=== PATIENT | female | born 1950 | race Caucasian/White ===

== ENCOUNTER 2024-09-30 15:26 | Emergency (ER) | payer MEDICARE, SELFPAY ==
[2024-09-30 15:44] VITALS: BP 131/85; PULSE 76; RESP 14; TEMP 36.8; O2SAT 96; BMI 18.6
--- NOTE | 2024-09-30 15:58 | XR_ITS ---
Examination: Foot, right 3 views Technique: AP, oblique, lateral views foot, 3 views Date and time of exam: September 30, 2024 1618 hrs. Indications: Onset right foot pain today Findings: Significant osteopenia Mild bunion deformity Moderate osteoarthritis first metatarsophalangeal joint No fracture No cortical bone destruction Impression: Mild bunion deformity Moderate osteoarthritis first metatarsophalangeal joint
--- NOTE | 2024-09-30 17:29 | PD.EDLOWEX ---
Lower Extremity Injury RME/HPI General Chief Complaint: Extremity Injury, Lower Stated Complaint: R FOOT PAIN Time Seen by Provider: 09/30/24 15:37 Arrival date/time: 09/30/24 15:26 74-year-old female presents emergency department complains of right foot pain x 1 year patient reports no fever nausea vomiting patient concerned she may have a foreign body in her right foot patient ports callus to the lateral aspect of the right foot Limitations: no limitations Related Data Home Medications ?Medication ?Instructions ?Recorded ?Confirmed No Known Home Medications 05/28/19 05/28/19 Allergies Allergy/AdvReac Type Severity Reaction Status Date / Time No Known Allergies Allergy Verified 05/27/19 23:11 Review of Systems Review of Systems Systems Reviewed: All systems reviewed, normal except as documented Constitutional Constitutional: Reports system reviewed and no additional complaints, except as documented, Denies fever(s) and Denies headache(s) Eyes Eyes: Reports system reviewed and no additional complaints, except as documented and Denies blurry vision ENT Ears, Nose, Mouth, and Throat: Reports system reviewed and no additional complaints, except as documented, Denies headache(s), Denies nasal congestion and Denies nasal discharge Cardiovascular Cardiovascular: Reports system reviewed and no additional complaints, except as documented, Denies chest pain and Denies dyspnea Respiratory Respiratory: Reports system reviewed and no additional complaints, except as documented, Denies chest congestion, Denies cough and Denies dyspnea Gastrointestinal Gastrointestinal: Reports system reviewed and no additional complaints, except as documented and Denies abdominal pain Musculoskeletal Musculoskeletal: Reports system reviewed and no additional complaints, except as documented, Reports arthralgias, Denies joint swelling, Denies stiffness and Denies tingling Integumentary/Breasts Skin/Breast: Reports system reviewed and no additional complaints, except as documented and Denies rash Neurologic Neurologic: Reports system reviewed and no additional complaints, except as documented, Reports as per HPI, Denies headache(s) and Denies tingling Past Medical History Past Medical History NEUROLOGIC: Negative Neurological Disorders CARDIAC: Negative Cardiac Disorders or Congestive Heart Failure RESPIRATORY: Negative Chronic Obstructive Pulmonary Disease (COPD) or Asthma GASTROINTESTINAL: Negative Gastrointestinal Disorders GENITOURINARY: Negative Genitourinary Disorders or Renal Disease REPRODUCTIVE: Negative Pelvic Inflammatory Disease MUSCULOSKELETAL: Negative Musculoskeletal Disorders ENDOCRINE: Negative Endocrine Disorders, Diabetes Mellitus Type 1 or Diabetes Mellitus Type 2 HEMATOLOGIC: Negative Blood Disorders Surgical History SURGICAL: Positive Tonsillectomy; Negative Cardiac Surgery, Ear Surgery or Abdominal Surgery Social History SMOKING STATUS: Never smoker ED Exam General Limitations: Present no limitations General appearance: Present alert and in no apparent distress Head Head exam: Present atraumatic Eye Eye exam: Present normal appearance, PERRL and EOMI ENT ENT exam: Present normal exam, normal oropharynx and mucous membranes moist Neck Neck exam: Present normal inspection, full ROM and trachea midline Chest Chest inspection: Present normal inspection and symmetric chest wall rise Respiratory Respiratory exam: Present normal lung sounds bilaterally Cardiovascular Cardiovascular exam: Present regular rate, normal rhythm and normal heart sounds Abdominal Exam Abdominal exam: Present soft and normal bowel sounds Extremities Exam Extremities exam: Present full ROM, tenderness and normal capillary refill; Absent joint swelling or calf tenderness Back Exam Back exam: Present normal inspection and full ROM Neurological Exam Neurological exam: Present alert, oriented X3 and CN II-XII intact Psychiatric Psychiatric exam: Present normal affect and normal mood Skin Skin exam: Present warm, dry, intact and normal color Course Quality Measures none Orders Category Date Time Status XR foot comp RT min 3V Stat Exams 09/30/24 15:58 Completed Vital Signs Vital signs: Vital Signs Temperature 98.3 F 09/30/24 15:44 Pulse Rate 76 09/30/24 15:44 Respiratory Rate 14 09/30/24 15:44 Blood Pressure 131/85 H 09/30/24 15:44 Pulse Oximetry (%) 96 09/30/24 15:44 Oxygen Delivery Method Room Air 09/30/24 15:44 O2 saturation 96% room air within normal limits Extremity Injury, Lower MDM Narrative MDM Narrative:: 74-year-old female presents emergency department complains of right foot pain x 1 year patient reports no fever nausea vomiting patient concerned she may have a foreign body in her right foot patient reports callus to the lateral aspect of the right foot On exam patient appears to have callus right foot no foreign body palpated or seen no erythema no swelling X-ray of right foot obtained no acute radiopaque foreign body noted Explained to the patient she is to follow-up with podiatry for further evaluation and treatment Patient data External records reviewed:: [facility] [place] previous records Clinical information provided by:: patient Social determinants that could affect healthcare access:: none Patient has the following chronic illnesses:: See history How is presenting disease/condition affected by chronic disease/condition?: uneffected by Evaluation data The following diagnostics were reviewed and interpreted by me:: radiology exam(s) Lab and/or radiology exams considered but not ordered:: Radiology obtain Interpretation Summary: Reviewed by me Medications / Prescriptions Medications or Prescriptions considered but not ordered:: Given no meds Medication administrations:: Given no meds Consultations Consultation(s) initiated? (list below): No Diagnosis Extremity Injury, Lower Differential Diagnosis: other (Foot sprain, foot fracture, foreign body right foot) Most likely diagnosis given after review of the tests above:: Foot pain Admission Indicated Admission indicated?: not indicated Admission Request Was there a request for admission?: No Disposition Plan Disposition Plan: Discharge Discharge Attestation Discharge Attestation: The patient and all family members were given an opportunity to ask questions and understood the discharge instructions. Discharge instructions specifically effects, indications for sooner follow up or return to the emergency department, and the expected course of current diagnosis. Patient condition: Stable Discharge Plan Plan Patient Disposition: HOME (Self Care) Disposition Comment: Stable Prescriptions/Referrals Prescriptions/Med Rec: No Action No Known Home Medications Referrals: Davidson Ferguson MD [Primary Care Provider] - 10/02/24 Problem List Clinical Impression: Bunion of right foot Patient/Caregiver Discharge Instructions Education Materials: ED Bunion Additional Instructions: Please follow-up with your primary care doctor in order get a referral to podiatry Print Language: Armenian Stand Alone Forms: Usha Award Info., Patient Portal Info Letter PA/TYRONE Supervising Physician AGUSTINA/TYRONE Supervising Physician: Dr Jenkins
== END 2024-09-30 17:46 | disposition home or self-care (01) ==
PROVIDERS: Emergency Provider Emergency Medicine; PCP Family Medicine
DX: M21.611 Bunion of right foot (principal)
CPT/HCPCS: 73630; 99283

== ENCOUNTER 2024-12-01 21:32 | Emergency (ER) | payer MEDICARE, SELFPAY ==
[2024-12-01 22:07] VITALS: BP 177/77; PULSE 65; RESP 16; TEMP 36.6; O2SAT 98
--- NOTE | 2024-12-01 22:25 | XR_ITS ---
Examination: AP chest single view Technique one AP upright portable chest single view Exam date and time: December 01, 2024 1042 hrs. Comparison April 28, 2024 Indications: Weakness today. Findings: Normal heart size No pneumonia or pulmonary edema Minor atelectasis right base Prominent osteopenia Prominent lower thoracic levoscoliosis Impression: Minor subsegmental atelectasis right base
--- NOTE | 2024-12-01 22:25 | EKG_ITS ---
[facility] Test Date: 2024-12-01 Pat Name: CHAD ESCOBEDO Department: Room: - Gender: Female [employer]: : 1950 Requested By: Ricky Manzanares Order Number: [id number] Reading MD: Ricky Manzanares Measurements Intervals [place] Rate: 66 P: 71 MD: 179 QRS: 77 QRSD: 84 T: 56 QT: 398 QTc: 420 Interpretive Statements SINUS RHYTHM WITH OCCASIONAL SUPRAVENTRICULAR PREMATURE COMPLEXES Compared to ECG 05/28/2019 00:09:14 No significant changes /store/S0/[id number].pdf
--- NOTE | 2024-12-01 22:26 | PD.EDRME ---
Rapid Medical Screening Exam E Arrival date/time: 12/01/24 21:32 74F with no significant PMH presents to ED with 1 day of generalized weakness and feeling dehydrated. There is also some N/V, but no ab pain. Chief Complaint: General Adult/Misc Complain Vital signs: Vital Signs Temperature 97.9 F 12/01/24 22:07 Pulse Rate 65 12/01/24 22:07 Respiratory Rate 16 12/01/24 22:07 Blood Pressure 177/77 H 12/01/24 22:07 Pulse Oximetry (%) 98 12/01/24 22:07 Oxygen Delivery Method Room Air 12/01/24 22:07
[2024-12-01 22:43] LABS: Basophils # (Auto) 0.1 Thou/mm3 (0.0-0.2); Basophils % (Auto) 1 % (0-2.5); Eosinophils % (Auto) 1 % (0-10); Hematocrit 35.9 % (36.0-46.0); Hemoglobin 12.2 g/dL (12.0-16.0); Immature Granulocytes % (Auto) 0 % (0-0); Immature Granulocytes Auto 0.02 Thou/mm3 (0.00-0.00); Lymphocytes # (Auto) 1.1 Thou/mm3 (1.0-4.8); Lymphocytes % (Auto) 14 % (10-50); Mean Corpuscular Hemoglobin 31.6 pg (25.0-35.0); Mean Corpuscular Volume 93 fL (80-100); Monocytes # (Auto) 0.3 Thou/mm3 (0.0-0.8); Monocytes % (Auto) 4 % (0-12); Neutrophils # (Auto) 6.1 Thou/mm3 (1.8-7.7); Neutrophils % (Auto) 80 % (37-80); Nucleated Red Blood Cell % 0 /100 WBC (0); Platelet Count 232 Thou/mm3 (140-440); RDW Standard Deviation 43.8 fL (36.4-46.3); Red Blood Count 3.86 Miln/mm3 (4.00-5.20); White Blood Count 7.6 Thou/mm3 (3.6-11.0)
[2024-12-01 23:24] LABS: Alanine Aminotransferase 13 U/L (10-49); Albumin, Serum 4.5 gm/dL (3.4-4.8); Albumin/Globulin Ratio 1.7 (1.2-2.2); Alkaline Phosphatase 64 U/L (46-116); Anion Gap 9 (7-16); Aspartate Amino Transferase 26 U/L (0-34); BUN/Creatinine Ratio 14 Ratio (12-20); Bilirubin,Total 0.4 mg/dL (0.3-1.2); Blood Urea Nitrogen 13 mg/dL (9-23); Calcium 9.6 mg/dL (8.3-10.6); Calcium (Corrected) 9.6 mg/dL (8.5-10.1); Carbon Dioxide 27.3 mMol/L (20.0-31.0); Chloride 102 mMol/L (98-107); Creatine Kinase 111 U/L (34-171); Creatinine (Component) 0.9 mg/dL (0.6-1.3); Globulin 2.6 gm/dL (2.3-3.5); Glucose 130 mg/dL (74-106); Osmolality,Calculated 277 (275-295); Potassium 3.7 mMol/L (3.4-5.1); Sodium 138 mMol/L (136-145); Total Protein 7.1 gm/dL (5.7-8.2); Troponin I < 0.020 ng/mL (0.0-0.045); eGFR > 60 See Note
[2024-12-02 00:18] LABS: Collection Type, Urine Clean Catch; Squamous Epithelial Cell,Urine 0 /hpf (0-5)
[2024-12-02 00:43] LABS: Bilirubin,Urine Negative (Negative); Blood,Urine Negative (Negative); Clarity,Urine Clear (Clear/Hazy); Color,Urine Yellow (Lt Yel-Yel); Glucose, Urine Negative (Negative); Hyaline Casts,Urine < 1 /hpf (0-1); Ketones,Urine 1+ (Negative); Leukocyte Esterase,Urine Negative (Negative); Nitrite,Urine Negative (Negative); Protein,Urine Trace (Neg - Trace); RBC,Urine 14 /hpf (0-3); Specific Gravity,Urine 1.022 (1.001-1.035); Urobilinogen,Urine Negative mg/dL (0.0-1.0); WBC,Urine 1 /hpf (0-5)
[2024-12-02 00:54] LABS: Amphetamine/Methamp Scrn,U Negative (Negative); Barbiturate Screen,Urine Negative (Negative); Benzodiazepines Screen,Urine Negative (Negative); Benzoylecgonine Screen, Ur Negative (Negative); Fentanyl Screen,Urine Negative (Negative); Opiate Screen,Urine Negative (Negative); THC Screen,Urine Negative (Negative)
[2024-12-02 01:07] VITALS: BP 176/90; PULSE 71; RESP 18; TEMP 36.7; O2SAT 97
[2024-12-02 01:33] LABS: B-Type Natriuretic Peptide 163 pg/mL (0-100)
--- NOTE | 2024-12-02 02:13 | XR_ITS ---
Examination: Abdomen 2 views Technique one AP upright AP supine abdomen 2 views Exam date and time: December 02, 2024 0247 hrs. Indications: Abdominal bloating and distention today. Findings: Large amounts of stool in the rectosigmoid No free air Prominent thoracolumbar levoscoliosis with advanced diffuse lumbar degenerative disc disease, advanced right moderate left hip joint narrowing Impression: Large amounts of stool in the rectosigmoid
[2024-12-02 03:27] VITALS: BP 140/74; PULSE 69; RESP 18; O2SAT 98
--- NOTE | 2025-01-01 13:22 | PD.EDADULT ---
ED General RME/HPI General Chief complaint: General Adult/Misc Complain Stated complaint: NOT FEELING WELL Arrival date/time: 12/01/24 21:32 RME / HPI RME / HPI narrative: 12/01/24 21:32 74F with no significant PMH presents to ED with 1 day of generalized weakness and feeling dehydrated. There is also some N/V, but no ab pain. DR ROBERTS MAIN ED EVALUATION: 71 yo female patient c/o vague symptoms of not feeling well, nausea. Denies fever,chills, sweats. Denies cough , CP, SOB. Related Data Previous Rx's ?Medication ?Instructions ?Recorded polyethylene glycol 3350 17 gram 17 g PO QDAY PRN constipation #14 12/02/24 oral powder packet (Miralax) ea Allergies Allergy/AdvReac Type Severity Reaction Status Date / Time No Known Allergies Allergy Verified 05/27/19 23:11 Review of Systems Review of Systems Systems Reviewed: All systems reviewed, normal except as documented Course Quality Measures none Orders Category Date Time Status Blood glucose [Bedside Blood Glucose] NOW Care 12/01/24 22:25 Completed EKG (ED ONLY) *Do not use* NOW Care 12/01/24 22:25 Completed EKG (ED Only) Stat Exams 12/01/24 22:25 Draft XR abdomen flat and uprght Stat Exams 12/02/24 02:13 Completed XR chest 1V portable Stat Exams 12/01/24 22:25 Completed B-Type Natriuretic Peptide Stat Lab 12/01/24 22:35 Completed CBC Stat Lab 12/01/24 22:35 Completed Comprehensive Metabolic Panel Stat Lab 12/01/24 22:35 Completed Creatine Kinase Stat Lab 12/01/24 22:35 Completed Drug Screen,Urine Stat Lab 12/01/24 00:10 Completed Troponin I Stat Lab 12/01/24 22:35 Completed Urinalysis Stat Lab 12/01/24 00:10 Completed Vital Signs Vital signs: Vital Signs Temperature 97.9 F 12/01/24 22:07 Pulse Rate 65 12/01/24 22:07 Respiratory Rate 16 12/01/24 22:07 Blood Pressure 177/77 H 12/01/24 22:07 Pulse Oximetry (%) 98 12/01/24 22:07 Oxygen Delivery Method Room Air 12/01/24 22:07 [facility] Patient data External records reviewed:: [facility] previous records Clinical information provided by:: patient Social determinants that could affect healthcare access:: none Patient has the following chronic illnesses:: none reported How is presenting disease/condition affected by chronic disease/condition?: no chronic disease Evaluation data The following diagnostics were reviewed and interpreted by me:: lab results and radiology exam(s) Lab and/or radiology exams considered but not ordered:: none Interpretation Summary: labs unremarkable, XR abd shows large stool burden, no evidence of obstruction, scolosis as interpreted by me Medications Medications considered but not ordered:: none Medication administrations:: none Consultations Consultation(s) initiated? (list below): No Diagnosis Differential Diagnosis ED Complaint MDM: dehydration, viral syndrome, abdominal pain, constipation Most likely diagnosis given after review of the tests above:: constipation Admission Indicated Admission indicated?: not indicated Explain why admission is indicated or not indicated:: stable for outpatient treatment and follow up Admission Request Was there a request for admission?: No Disposition Plan Disposition Plan: Discharge Discharge Attestation Discharge Attestation: The patient and all family members were given an opportunity to ask questions and understood the discharge instructions. Discharge instructions specifically effects, indications for sooner follow up or return to the emergency department, and the expected course of current diagnosis. Patient condition: Stable Medical Decision Making Differential Diagnosis Differential Diagnosis: dehydration, viral syndrome, abdominal pain, constipation Lab Data 12/01/24 22:35 12/01/24 22:35 Labs: Lab Results 12/01/24 12/01/24 Range/Units 00:10 22:35 WBC 7.6 (3.6-11.0) Thou/mm3 RBC 3.86 L (4.00-5.20) Miln/mm3 Hgb 12.2 (12.0-16.0) g/dL Hct 35.9 L (36.0-46.0) % MCV 93 (80-100) fL MCH 31.6 (25.0-35.0) pg MCHC 34.0 (31.0-37.0) g/dl RDW Std Deviation 43.8 (36.4-46.3) fL Plt Count 232 (140-440) Thou/mm3 Neut % (Auto) 80 (37-80) % Lymph % (Auto) 14 (10-50) % [place] % (Auto) 4 (0-12) % Eos % (Auto) 1 (0-10) % Baso % (Auto) 1 (0-2.5) % Neut # (Auto) 6.1 (1.8-7.7) Thou/mm3 Lymph # (Auto) 1.1 (1.0-4.8) Thou/mm3 [place] # (Auto) 0.3 (0.0-0.8) Thou/mm3 Eos # (Auto) 0.0 (0.0-0.5) Thou/mm3 Baso # (Auto) 0.1 (0.0-0.2) Thou/mm3 Immature Gran # (Auto) 0.02 H (0.00-0.00) Thou/mm3 Absolute Nucleated RBC 0.00 (0.00-0.00) Thou/mm3 Immature Gran % 0 (0-0) % Nucleated RBC % 0 (0) /100 WBC Sodium 138 (136-145) mMol/L Potassium 3.7 (3.4-5.1) mMol/L Chloride 102 (98-107) mMol/L Carbon Dioxide 27.3 (20.0-31.0) mMol/L Anion Gap 9 (7-16) BUN 13 (9-23) mg/dL Creatinine 0.9 (0.6-1.3) mg/dL Estim Creat Clear Calc Not Performed. eGFR > 60 (60 - ) See Note BUN/Creatinine Ratio 14 (12-20) Ratio Glucose 130 H (74-106) mg/dL Calculated Osmolality 277 (275-295) Calcium 9.6 (8.3-10.6) mg/dL Corrected Calcium 9.6 (8.5-10.1) mg/dL Total Bilirubin 0.4 (0.3-1.2) mg/dL AST 26 (0-34) U/L ALT 13 (10-49) U/L Alkaline Phosphatase 64 (46-116) U/L Total Creatine Kinase 111 (34-171) U/L Troponin I < 0.020 (0.0-0.045) ng/mL B-Natriuretic Peptide 163 H (0-100) pg/mL Total Protein 7.1 (5.7-8.2) gm/dL Albumin 4.5 (3.4-4.8) gm/dL Globulin 2.6 (2.3-3.5) gm/dL Albumin/Globulin Ratio 1.7 (1.2-2.2) Ur Collection Type Clean Catch Urine Color Yellow (Lt Yel-Yel) Urine Clarity Clear (Clear/Hazy) Urine pH 7.0 (5.0-7.0) Ur Specific [employer] 1.022 (1.001-1.035) Urine Protein Trace (Neg - Trace) Urine Glucose (UA) Negative (Negative) Urine Ketones 1+ A (Negative) Urine Blood Negative (Negative) Urine Nitrite Negative (Negative) Urine Bilirubin Negative (Negative) Urine Urobilinogen (Auto) Negative (0.0-1.0) mg/dL Ur Leukocyte Esterase Negative (Negative) Urine RBC 14 H (0-3) /hpf Urine WBC 1 (0-5) /hpf Ur Squamous Epith Cells 0 (0-5) /hpf Urine Bacteria None (None) Hyaline Casts < 1 (0-1) /hpf Urine Opiates Screen Negative (Negative) Urine Fentanyl Screen Negative (Negative) Ur Barbiturates Screen Negative (Negative) U Amphetamin/Meth Scrn Negative (Negative) U Benzodiazepines Scrn Negative (Negative) U Cocaine Metab Screen Negative (Negative) U Marijuana (THC) Screen Negative (Negative) Discharge Plan Plan Patient Disposition: HOME (Self Care) Prescriptions/Referrals Prescriptions/Med Rec: New polyethylene glycol 3350 [Miralax] 17 gram powder in packet 17 g PO QDAY PRN (Reason: constipation) Qty: 14 0RF Referrals: Davidson Ferguson MD [Primary Care Provider] - In 1 week Problem List Clinical Impression: Generalized weakness, Constipation Patient/Caregiver Discharge Instructions Education Materials: ED Constipation (Adult), ED Weakness (Uncertain Cause) Print Language: Czech Stand Alone Forms: Usha Award Info., Patient Portal Info Letter
== END 2024-12-02 03:29 | disposition home or self-care (01) ==
PROVIDERS: Physician Assistant; Emergency Provider Emergency Medicine; PCP Family Medicine
DX: K59.00 Constipation, unspecified (principal); R53.1 Weakness; I49.1 Atrial premature depolarization
CPT/HCPCS: 36415; 71045; 74019; 80053; 80307; 81001; 82550; 83880; 84484; 85025; 93005; 99283

== ENCOUNTER 2025-03-31 17:10 | Emergency (ER) | payer MEDICARE, SELFPAY ==
--- NOTE | 2025-03-31 18:11 | PC.NURSE ---
called pt back, no answer at this time
[2025-03-31 18:13] VITALS: BP 189/81; PULSE 70; RESP 18; TEMP 36.6; O2SAT 99; BMI 19.6
--- NOTE | 2025-03-31 19:02 | EDNOTE_ITS ---
ED Fall Injury RME/HPI General Chief Complaint: Fall Stated Complaint: Fall, right back pain Time Seen by Provider: 03/31/25 18:42 Arrival date/time: 03/31/25 17:10 RME / HPI RME / HPI Narrative: 75-year-old female presents to the ED with complaint of right-sided back pain secondary to an injury she sustained just prior to arrival. She states she was walking into her back door when she tripped and struck the right side of her back on the door jam. Related Data Previous Rx's ?Medication ?Instructions ?Recorded polyethylene glycol 3350 17 gram 17 g PO QDAY PRN cons tipation #14 12/02/24 oral powder packet (Miralax) ea Allergies Allergy/AdvReac Type Severity Reaction Status Date / Time No Known Allergies Allergy Verified 03/31/25 17:18 Review of Systems Review of Systems Systems Reviewed: All systems reviewed, normal except as documented Past Medical History Past Medical History NEUROLOGIC: Negative Neurological Disorders CARDIAC: Negative Cardiac Disorders or Congestive Heart Failure RESPIRATORY: Negative Chronic Obstructive Pulmonary Disease (COPD) or Asthma GASTROINTESTINAL: Negative Gastrointestinal Disorders GENITOURINARY: Negative Genitourinary Disorders or Renal Disease REPRODUCTIVE: Negative Pelvic Inflammatory Disease MUSCULOSKELETAL: Negative Musculoskeletal Disorders ENDOCRINE: Negative Endocrine Disorders, Diabetes Mellitus Type 1 or Diabetes Mellitus Type 2 HEMATOLOGIC: Negative Blood Disorders Surgical History SURGICAL: Positive Tonsillectomy; Negative Cardiac Surgery, Ear Surgery or Abdominal Surgery Social History SMOKING STATUS: Former smoker ED Exam Narrative Physical exam: 75-year-old female, appears mildly confused. Lungs are clear, regular rate and rhythm without murmurs, abdomen is soft and nontender. No cervical, thoracic, lumbar spinal tenderness. Mild right-sided thoracic tenderness noted on exam. No ecchymosis or edema is noted. Obvious scoliosis noted with deformity noted to the right posterior chest wall. Patient states she is unaware she has scoliosis. Negative straight leg raise. Normal DTRs bilaterally to lower extremities. CMS intact distally. Course Course Course Narrative: Chest x-ray, no acute fracture, who hemothorax or pneumothorax. Thoracic spine x-ray no acute fracture. Severe osteoporosis with levoscoliosis and multiple old compression fractures of the thoracic spine. Urinalysis reveals no hematuria or infection. Quality Measures none Orders Category Date Time Status XR chest 2V Stat Exams 03/31/25 19:05 Completed XR thoracic spine 3V Stat Exams 03/31/25 19:05 Completed Urinalysis Stat Lab 03/31/25 20:38 Completed Urine Culture Stat Lab 03/31/25 20:38 Received Vital Signs Vital signs: Vital Signs Temperature 97.9 F 03/31/25 18:13 Pulse Rate 70 03/31/25 18:13 Respiratory Rate 18 03/31/25 18:13 Blood Pressure 189/81 H 03/31/25 18:13 Pulse Oximetry (%) 99 03/31/25 18:13 Oxygen Delivery Method Room Air 03/31/25 18:13 Fall MDM Narrative MDM Narrative:: 75-year-old female presents to the ED with complaint of right-sided back pain secondary to an injury she sustained just prior to arrival. She states she was walking into her back door when she tripped and struck the right side of her back on the door jam. 75-year-old female, appears mildly confused. Lungs are clear, regular rate and rhythm without murmurs, abdomen is soft and nontender. No cervical, thoracic, lumbar spinal tenderness. Mild right-sided thoracic tenderness noted on exam. No ecchymosis or edema is noted. Obvious scoliosis noted with deformity noted to the right posterior chest wall. Patient states she is unaware she has scoliosis. Negative straight leg raise. Normal DTRs bilaterally to lower extremities. CMS intact distally. Chest x-ray, no acute fracture, who hemothorax or pneumothorax. Thoracic spine x-ray no acute fracture. Severe osteoporosis with levoscoliosis and multiple old compression fractures of the thoracic spine. Urinalysis reveals no hematuria or infection. Patient data External records reviewed:: [facility] previous records Clinical information provided by:: patient Social determinants that could affect healthcare access:: none Patient has the following chronic illnesses:: Osteoporosis, levoscoliosis How is presenting disease/condition affected by chronic disease/condition?: uneffected by Evaluation data The following diagnostics were reviewed and interpreted by me:: lab results and radiology exam(s) Lab and/or radiology exams considered but not ordered:: N/A Interpretation Summary: Thoracic spine x-ray no acute fracture. Severe osteoporosis with levoscoliosis and multiple old compression fractures of the thoracic spine. Urinalysis reveals no hematuria or infection. Medications / Prescriptions Medications or Prescriptions considered but not ordered:: N/A Medication administrations:: N/A Consultations Consultation(s) initiated? (list below): No Diagnosis Fall Differential Diagnosis: compression fracture and other (Rib fracture, pulmonary contusion, hemothorax, pneumothorax) Most likely diagnosis given after review of the tests above:: Right rib contusion Admission Indicated Admission indicated?: not indicated Explain why admission is indicated or not indicated:: Patient is stable for discharge Admission Request Was there a request for admission?: No Disposition Plan Disposition Plan: Discharge Discharge Attestation Discharge Attestation: The patient and all family members were given an opportunity to ask questions and understood the discharge instructions. Discharge instructions specifically effects, indications for sooner follow up or return to the emergency department, and the expected course of current diagnosis. Patient condition: Stable Discharge Plan Plan Patient Disposition: HOME (Self Care) Discharge Disposition comment: Stable Prescriptions/Referrals Prescriptions/Med Rec: No Action polyethylene glycol 3350 [Miralax] 17 gram powder in packet 17 g PO QDAY PRN (Reason: constipation) Qty: 14 0RF Referrals: No Primary/Family,Physician [Primary Care Provider] - In 1 week Problem List Clinical Impression: Contusion of rib on right side Patient/Caregiver Discharge Instructions Education Materials: ED Contusion, Rib Additional Instructions: Take Tylenol at home for your pain. Apply ice packs to the painful areas. Follow-up with your primary care physician in 24 to 48 hours. Return to the ED for any new or worsening symptoms. Print Language: Kyrgyz Stand Alone Forms: Usha Award Info., Patient Portal Info Letter PA/TYRONE Supervising Physician PA/TYRONE Supervising Physician: Dr Cordero
--- NOTE | 2025-03-31 19:05 | XR_ITS ---
Examination: PA lateral chest 2 views TECHNIQUE: Upright PA lateral chest 2 views Date and time: March 31, 2025 1941 hours INDICATIONS: Patient fell today with into the chest, chest pain. FINDINGS: Normal heart size Subsegmental atelectasis at the lung bases No pneumothorax Clavicles ribs intact and Severe osteopenia with chronic osteoporotic compressions mid dorsal vertebral bodies IMPRESSION: No pneumothorax or hemothorax
--- NOTE | 2025-03-31 19:05 | XR_ITS ---
Examination: Thoracic spine 3 views TECHNIQUE: AP lateral, lateral upper dorsal spine 3 views Date and time: March 31, 2025 at 1944 hours INDICATIONS: Patient fell today with injury to the back, back pain FINDINGS: Severe osteopenia Prominent thoracic dextroscoliosis thoracolumbar levoscoliosis Chronic osteoporotic compressions multiple dorsal vertebral bodies No definite acute fracture IMPRESSION: Severe osteopenia Chronic osteoporotic compressions multiple dorsal vertebral bodies No definite acute thoracic fracture noted
[2025-03-31 20:46] LABS: Collection Type, Urine Clean Catch; Squamous Epithelial Cell,Urine 0 /hpf (0-5)
[2025-03-31 21:04] LABS: Bilirubin,Urine Negative (Negative); Blood,Urine Negative (Negative); Clarity,Urine Clear (Clear/Hazy); Color,Urine Colorless (Lt Yel-Yel); Glucose, Urine Negative (Negative); Ketones,Urine Negative (Negative); Leukocyte Esterase,Urine Negative (Negative); Nitrite,Urine Negative (Negative); PH,Urine 6.5 (5.0-7.0); Protein,Urine Negative (Neg - Trace); RBC,Urine 2 /hpf (0-3); Specific Gravity,Urine 1.008 (1.001-1.035); Urobilinogen,Urine Negative mg/dL (0.0-1.0); WBC,Urine < 1 /hpf (0-5)
== END 2025-03-31 22:27 | disposition home or self-care (01) ==
PROVIDERS: Physician Assistant; Emergency Provider Emergency Medicine
DX: S20.211A Contusion of right front wall of thorax, initial encounter (principal); R07.9 Chest pain, unspecified; M41.9 Scoliosis, unspecified; M80.88XD Other osteoporosis with current pathological fracture, vertebra(e), subsequent encounter for fracture with routine healing; W01.198A Fall on same level from slipping, tripping and stumbling with subsequent striking against other object, initial encounter; Y93.01 Activity, walking, marching and hiking
CPT/HCPCS: 71046; 72072; 81001; 87086; 99283